=== PATIENT | female | born 1965 | race Asian ===

== ENCOUNTER 2018-03-05 19:38 | Emergency (ER) | payer OTHER ==
[2018-03-05] MEDS: HYDROCODONE/APAP (5/325) TAB PO (20:53)
== END 2018-03-05 21:50 | disposition home or self-care (01) ==
LOC: FTE 21:50
DX: R51 Headache (principal); E11.9 Type 2 diabetes mellitus without complications; I10 Essential (primary) hypertension
CPT/HCPCS: 70450; 99284-25